=== PATIENT | male | born 2000 | race Caucasian/White ===

== ENCOUNTER 2024-02-07 10:59 | Emergency (ER) | payer BC | END 2024-02-07 13:41 | disposition home or self-care (01) | LOC: JD.ED 10:59 | DX: J10.1 Influenza due to other identified influenza virus with other respiratory manifestations (principal); Z88.0 Allergy status to penicillin; Z79.899 Other long term (current) drug therapy | CPT/HCPCS: 71045; 71045-26; 87428-QW; 99285 ==

== ENCOUNTER 2024-08-19 02:35 | Emergency (ER) | payer BC ==
[2024-08-19] MEDS: Ketorolac 30 MG/ML SDV IM ONE (03:15)
== END 2024-08-19 03:23 | disposition home or self-care (01) ==
LOC: JD.ED 02:35
DX: T21.11XA Burn of first degree of chest wall, initial encounter (principal); Z88.0 Allergy status to penicillin; Z88.8 Allergy status to other drugs, medicaments and biological substances; Z91.018 Allergy to other foods; Z79.899 Other long term (current) drug therapy
CPT/HCPCS: 96372; 99283; J1885